=== PATIENT | male | born 1985 | race Caucasian/White ===

== ENCOUNTER 2019-10-20 16:24 | Emergency (ER) | payer SELFPAY ==
[~2019-10-20] VITALS: Ht 180.3 cm; Wt 90.9 kg
[2019-10-20 16:29] VITALS: BP 133/71; Ht 180.3 cm; Wt 90.9 kg
[2019-10-20] MEDS ORDERED: VIBRAMYCIN 100100 MG PO (16:58)
[2019-10-20] MEDS ORDERED: TYLENOL W/CODEI1 TAB PO (16:58)
== END 2019-10-20 17:28 | disposition home or self-care (01) ==
LOC: D.ER 16:24
DX: L03.113 Cellulitis of right upper limb (principal); S40.911A Unspecified superficial injury of right shoulder, initial encounter; X58.XXXA Exposure to other specified factors, initial encounter